=== PATIENT | female | born 1945 | race Two or more races ===

== ENCOUNTER → 2018-11-07 | Outpatient (CLI) | payer OTHER, MEDICAID | LOC: BHLMT 13:30 | PROVIDERS: ATTEND Nurse Practitioner Family | DX: I48.2 Chronic atrial fibrillation (principal); I27.20 Pulmonary hypertension, unspecified; I10 Essential (primary) hypertension; R06.02 Shortness of breath; E78.5 Hyperlipidemia, unspecified | CPT/HCPCS: 93005-PO ==

== ENCOUNTER → 2018-11-21 | Outpatient (CLI) | payer OTHER, MEDICAID | LOC: BHLMT 16:15 | PROVIDERS: ATTEND Internal Medicine Cardiovascular Disease | DX: I48.91 Unspecified atrial fibrillation (principal); I10 Essential (primary) hypertension | CPT/HCPCS: 93306-PO ==